=== PATIENT | female | born 1990 | race Caucasian/White ===

== ENCOUNTER 2016-11-23 14:06 | Emergency (ER) | payer OTHER ==
[2016-11-23 14:16] VITALS: BP 151/109
[2016-11-23] MEDS ORDERED: Albuterol 2.5 MG/3 ML NEB.SOL* (0.083%) INH ONE (14:24)
--- NOTE | 2016-11-23 14:49 | UC ---
Asthma HPI - HPI Summary HPI Summary: Patient presents with a past medical history of asthma. She presents today with complaints of persistent coughing, wheezing, and fatigue with episodes of sweats. She is exposed to second hand smoke, and states this causes her to cough. She denies fever,chills, nausea, vomiting, diarrhea. She beleive she has the flu. - History of Current Complaint Chief Complaint: UCRespiratory Stated Complaint: FLU LIKE COMPLAINT Time Seen by Provider: 11/23/16 14:16 Hx Obtained From: Patient Hx Last Menstrual Period: 10/28/16 ?: No Onset/Duration: Lasting Days Timing: Minutes Initial Severity: Mild Current Severity: Moderate Location/Character: Cough (Productive) Aggravating: Exertion, Smoke Alleviating: Nothing Associated Signs and Symptoms: Positive: Negative - Risk Factors Status Asthmaticus Risk Factors: Negative - Allergy/Home Medications Allergies/Adverse Reactions: Allergies Allergy/AdvReac Type Severity Reaction Status Date / Time Environmental Allergies Allergy Eyes Uncoded 11/08/15 09:07 Itchy/Swollen/Red/Watery Home Medications: Home Medications ALPRAZolam TAB* [Xanax TAB*] 0.25 mg PO Q6H PRN 11/23/16 [History Confirmed 12/01] Sertraline HCl [Zoloft] 25 mg PO 11/23/16 [History] Zolpidem CR (NF) [Ambien CR (NF)] 6.25 mg PO BEDTIME 11/23/16 [History Confirmed 11/23/16] PMH/Surg Hx/FS Hx/Imm Hx Previously Healthy: Yes Respiratory History: Asthma - Surgical History Surgical History: None - Family History Known Family History: Positive: Hypertension - Social History Occupation: Employed Full-time Alcohol Use: Weekly Substance Use Type: None Smoking Status (MU): Never Smoked Tobacco - Immunization History Most Recent Influenza Vaccination: not in a long time Most Recent Tetanus Shot: up to date Most Recent Pneumonia Vaccination: never Review of Systems Constitutional: Fatigue Respiratory: Cough All Other Systems Reviewed And Are Negative: Yes Physical Exam Triage Information Reviewed: Yes Appearance: Ill-Appearing Vital Signs: Initial Vital Signs Temp 97.9 F 11/23/16 14:12 Pulse 65 11/23/16 14:12 Resp 18 11/23/16 14:12 BP 151/109 11/23/16 14:12 Pulse Ox 99 11/23/16 14:12 Vital Signs Reviewed: Yes Eye Exam: Normal ENT Exam: Normal Neck exam: Normal Respiratory: Positive: Wheezing - inspiratory, expiratory wheeaing noted. Cardiovascular Exam: Normal Skin Exam: Normal Asthma Course/Dx - Course Course Of Treatment: Patient presents with several days onset persisent cough, wheezing and generally not feeling well. Influenza wa negative. Patient was given an albutrol nebulzier treatment. She was treated outpatient with doxycycline 100 mg bid for 10 days, prednisone 20 mg bid x 5 days, and tessalon perles as cough suppressant, and albuterol hfa. The patient states improvement after albuterol nebulizer. If for any reason her symptoms worsen or persist she or if her symtpoms do not improve as anticipated she was instructed to follow up with PCP. - Differential Dx/Diagnosis Differential Diagnosis/HQI/PQRI: Acute Asthma, Bronchitis Provider Diagnoses: asthma. bronchitis Discharge - Discharge Plan Condition: Stable Disposition: HOME Prescriptions: Albuterol HFA INHALER* [Ventolin HFA Inhaler*] 1 - 2 puff INH Q6H PRN #1 mdi PRN Reason: asthma Benzonatate [TESSALON 200 MG CAP] 200 mg PO TID #30 cap DOXYcycline CAP(*) [DOXYcycline 100MG CAP(*)] 100 mg PO BID #20 cap predniSONE TAB* [Deltasone TAB*] 20 mg PO BID #10 tab Patient Education Materials: Asthma (ED), Acute Bronchitis (ED) Forms: *Work Release Referrals: Amando Salinas [employer] TE[employer]ER [Primary Care Provider] - Additional Instructions: You should not be exposed to any second hand smoke. this is going to cause you to have a asthma attach.
== END 2016-11-23 14:54 | disposition home or self-care (01) ==
LOC: UCEAST 14:06
DX: J45.991 Cough variant asthma (principal)
CPT/HCPCS: 87502; 99212; G0463